=== PATIENT | female | born 1975 | race Caucasian/White ===

== ENCOUNTER 2021-03-03 19:12 | Emergency (ER) | payer SELFPAY | END 2021-03-03 19:47 | disposition home or self-care (01) | LOC: NAV ERS 19:12 | DX: J06.9 Acute upper respiratory infection, unspecified (principal); E78.00 Pure hypercholesterolemia, unspecified; F17.210 Nicotine dependence, cigarettes, uncomplicated | CPT/HCPCS: 99283 ==

== ENCOUNTER 2023-03-14 12:58 | Emergency (ER) | payer BC ==
[2023-03-14] MEDS ORDERED: methylPREDNISolone Acetate 40 mg/ml Vial ONE (14:45)
== END 2023-03-14 15:13 | disposition home or self-care (01) ==
LOC: NAV ERS 12:58
DX: J20.5 Acute bronchitis due to respiratory syncytial virus (principal); E78.00 Pure hypercholesterolemia, unspecified; F17.210 Nicotine dependence, cigarettes, uncomplicated
CPT/HCPCS: 71046; 87635; 87804; 87807; 96372; J1030